=== PATIENT | female | born 2000 | race Caucasian/White ===

== ENCOUNTER → 2025-03-04 10:10 | Outpatient (CLI) | payer OTHER, SELFPAY ==
[2025-03-10 13:41] LABS: Chlamydia trachomatis Negative (Negative); Mycoplasma genitalium Negative (Negative); Neisseria gonorrhoeae Negative (Negative)
== END ==
PROVIDERS: PCP Family Medicine; Visit Provider Obstetrics & Gynecology
DX: Z11.3 Encounter for screening for infections with a predominantly sexual mode of transmission (principal)
CPT/HCPCS: 87491; 87563; 87591

== ENCOUNTER → 2025-03-04 10:23 | Outpatient (CLI) | payer OTHER, SELFPAY ==
[2025-03-04 11:47] LABS: Hemoglobin A1C% w Est Avg Glu < 4.0 % (4.0-6.0)
[2025-03-04 12:17] LABS: Free T4, Direct Thyroxine 0.99 ng/dL (0.78-2.19)
[2025-03-04 12:30] LABS: Thyroid Stimulating Hormone 2.95 uIU/mL (0.47-4.68)
== END ==
PROVIDERS: PCP Family Medicine; Referring Provider Obstetrics & Gynecology; Visit Provider Obstetrics & Gynecology
DX: Z31.69 Encounter for other general counseling and advice on procreation (principal); Z83.49 Family history of other endocrine, nutritional and metabolic diseases; Z11.3 Encounter for screening for infections with a predominantly sexual mode of transmission
CPT/HCPCS: 36415; 83036; 84439; 84443; 87491; 87563; 87591

== ENCOUNTER 2025-07-05 07:47 | Emergency (ER) | payer OTHER, SELFPAY ==
[2025-07-05 07:53] VITALS: BP 114/53; PULSE 87; RESP 18; TEMP 36.9; O2SAT 99; BMI 30.1
--- NOTE | 2025-07-05 08:04 | ED_ITS ---
HPI - Abdominal Pain General Chief Complaint: Abdominal Pain Stated Complaint: ; cramping LT abd; hx miscarrage Time Seen by Provider: 07/05/25 07:56 Source: patient Mode of arrival: Ambulatory History of Present Illness HPI narrative: Patient is a 25-year-old female presenting to day with some abdominal cramping more in the left side and some mild spotting. Last menstrual period was May 26. She is actively trying to get , no fertility medications. Last time she had a miscarriage as well it was thought that she may have had an ectopic but never went to surgery or took medication. She is worried about at this time. She has not yet seen an OB. Denies any significant nausea or vomiting. Says that pain is a little crampy but does not want anything for it. Related Data Home Medications ?Medication ?Instructions ?Recorded ?Confirmed No Known Home Medications 03/04/2512/02 Allergies Allergy/AdvReac Type Severity Reaction Status Date / Time No Known Drug Allergies Allergy Unverified 04/08/25 15:53 Patient History Medical History Plantar warts (~2019) Bulimia (~2015) History of eating disorder Herpes labialis Miscarriage (~2020) Encounter for preconception consultation Family history of MTHFR deficiency Surgical History Anesthesia Broken arm (~2003) Family History Mother Skin cancer Grandfather Cancer Grandfather Cancer Social History Smoking Status: Never smoker Smoking Status: Never smoker Exam Initial Vital Signs Initial Vital Signs: Vital Signs Temperature 98.5 F 07/05/25 07:53 Pulse Rate 87 07/05/25 07:53 Respiratory Rate 18 07/05/25 07:53 Blood Pressure 114/53 L 07/05/25 07:53 Pulse Oximetry 99 07/05/25 07:53 Oxygen Delivery Method Room Air 07/05/25 07:53 GENERAL: Alert pleasant well-appearing 25-year-old and in [no acute] distress. HEENT: Head atraumatic,EOMI, pupils reactive, face symmetric, [moist] mucous membranes CARDIOVASCULAR: Regular rate and rhythm without murmurs, rubs or gallops. RESPIRATORY: Breath sounds equal bilaterally, no wheezes rales or rhonchi. ABDOMEN: Soft, nontender. Normoactive bowel sounds all 4 quadrants. No guarding or rebound. Left lower quadrant tenderness no guarding or rebound EXTREMITIES: Normal range of motion, no clubbing or edema. Neurovascularly intact NEUROLOGICAL: Alert and oriented x4.Normal gait and speech. Cranial nerves II through XII grossly intact. SKIN: Warm, dry, no laceration, no petechiae, no rashes or lesions. Course Orders Ordered: ED Orders 07/05/25 08:01 ABO RH Type Stat Beta HCG, Quant [HCG Quantitative /Beta subunit] Stat CBC Auto Diff [Complete Blood Count AUTO DIFF] Stat CMP [Comprehensive Metabolic Panel] Stat 07/05/25 08:02 OB <= 14 weeks fetus Stat Vital Signs Vital signs: Vital Signs - 8 hr 07/05/25 07:53 07/05/25 10:01 Temperature 98.5 F 99.2 F Pulse Rate 87 82 Respiratory Rate 18 16 Blood Pressure 114/53 L 119/57 L Pulse Oximetry 99 Oxygen Delivery Method Room Air MDM - Abdominal Pain Lab Data 07/05/25 08:01 07/05/25 08:01 Labs: Lab Results 07/05/25 Range/Units 08:01 WBC 7.2 (4.5-11.0) X10^3/uL RBC 4.00 (4.0-5.2) X10^6/uL Hgb 12.6 (12.0-16.0) g/dL Hct 35.7 L (36-46) % MCV 89.4 (80-100) fL MCH 31.4 (26-34) PG MCHC 35.2 (30-36) % RDW 16.7 H (11.6-14.8) % Plt Count 274 (150-400) X10^3/uL Neut % (Auto) 70.7 (50-75) % Lymph % (Auto) 21.1 L (25-40) % Cataño % (Auto) 6.6 (3-14) % Eos % (Auto) 0.9 L (2-4) % Baso % (Auto) 0.7 (0-2) % Neut # (Auto) 5100 (5249-8185) /uL Lymph # (Auto) 1500 (5305-3473) /uL Cataño # (Auto) 500 (0-900) /uL Eos # (Auto) 100 (0-450) /uL Baso # (Auto) 100 (0-100) /uL Sodium 139 (137-145) mmol/L Potassium 3.8 (3.4-5.1) mmol/L Chloride 104 (98-107) mmol/L Carbon Dioxide 23 (22-32) mmol/L BUN 7 (7-17) mg/dL Creatinine 0.65 (0.52-1.04) mg/dL Estimated GFR > 60 (>60) mL/min BUN/Creatinine Ratio 10.8 (6-22) Glucose 112 H (70-99) mg/dL Calcium 9.4 (8.4-10.2) mg/dL Total Bilirubin 1.3 (0.2-1.3) mg/dL AST 33 (14-36) IU/L ALT 38 H (<35) IU/L Alkaline Phosphatase 62 (38-126) U/L Total Protein 8.5 H (6.3-8.2) g/dL Albumin 5.1 H (3.5-5.0) g/dL Globulin 3.4 (1.7-4.1) g/dL Albumin/Globulin Ratio 1.5 (1.0-2.8) HCG, Quant 62.85 mIU/mL Blood Type A Positive Point of care testing: Point of Care Testing Test Results Positive Urine Dip Bedside Urine Glucose Negative Bedside Urine Bilirubin - Negative Bedside Urine Ketone - Negative Urine Specific Lithia 1.000 Bedside Urine Occult Blood - Negative Bedside Urine pH 8.0 Bedside Urine Protein - Negative Bedside Urine Urobilinogen - Negative Bedside Urine Nitrite - Negative Bedside Urine Leukocytes - Negative Esterase Imaging Data US - STAFFING RN: Radiologist's Impression: PROCEDURE: US OB <= 14 WEEKS FETUS INDICATIONS: LLQ pain bleeding OUTSIDE/PRIOR DATING DATA: Last menstrual period (LMP): 05/26/2025 LMP-based estimated date of delivery (AYDEN): 03/02/2026. TECHNIQUE: Real-time scanning was performed of the fetus and maternal pelvic organs, with image documentation. Endovaginal scanning was also performed to better visualize the fetus and maternal ovaries. COMPARISON: None. FINDINGS: Embryo: Uterus measures 6.9 x 3.8 x 4.2 cm in size. Endometrium measures 1.7 cm in thickness. No intrauterine gestational sac. No endometrial mass or fluid is seen. Heart rate: Not detected. Maternal organs: Ovaries are within normal limits. No ectopic gestational sac or adnexal mass. Corpus luteal cyst is seen right ovary. IMPRESSION: 1. No intrauterine gestation is seen at this time. Correlation with serial beta HCG level is recommended for evaluation of viability. We strive to produce accurate, complete, and clear reports of imaging services. To assist us in improving patient care, this report was composed using standard report templates and voice recognition software. Therefore, it may contain abnormal punctuation, insertions and/or omissions. Occasional wrong-word or sound-alike substitutions may occur. Though we review the report and make efforts to correct it, we do recommend that the report be read carefully in proper context to recognize any text inaccuracies. Dictated by: Edilberto Marshall M.D. on 07/05/2025 at 9:30 Approved by: Edilberto Marshall M.D. on 07/05/2025 at 9:32 [facility] Narrative Medical decision making narrative: Patient 25-year-old female currently presenting today with abdominal cramping and mild spotting. She previously had a miscarriage. Blood work has been reviewed HCG is 62.85 A positive blood type Hemoglobin 12.6 hematocrit 35.7 Electrolytes within normal limits Urinalysis positive for negative for UTI Ultrasound does not show an IUP but no evidence of ectopic Patient has previously established with 2 providers here at this hospital 1 Ob. Recommend outpatient serial HCGs close monitoring and return as needed. At this time discussion with the patient and about testing results need for follow-up and when to return to ED. All questions have been answered. No need for RhoGAM at this time. Discharge Plan Departure Patient Disposition: Home Clinical Impression: , threatened Instructions: DI for Vaginal Bleeding During Activity Restrictions/Additional Instructions: *You have been diagnosed with vaginal bleeding with *What to do: At this time please have hCG repeated by Sunday. Call either OB or PCP to have blood work order placed *Continue to take medications as directed Tylenol 1000 mg every 6 hours for [id number] pain *Follow up with your primary care provider in 2-3 days or call [phone] *Return to ER if you should have increased bleeding increased cramping dizziness passing out [or] any new, worsening or concerning symptoms Prescriptions: No Action No Known Home Medications Referrals: Cora Hassan MD [Primary Care Provider, Family Practice] Dahiana Cannon MD [Physician, [facility]] Stand Alone Forms: Patient Portal/API
[2025-07-05 08:28] LABS: Add Manual Diff / Slide Review NO; Hematocrit 35.7 % (36-46); Hemoglobin 12.6 g/dL (12.0-16.0); Lymphocytes Absolute Auto 1500 /uL (1100-4500); Mean Corpuscular HGB Conc 35.2 % (30-36); Mean Corpuscular Hemoglobin 31.4 PG (26-34); Mean Corpuscular Volume 89.4 fL (80-100); Platelet Count 274 X10^3/uL (150-400)
[2025-07-05 08:44] LABS: Alanine Aminotransferase 38 IU/L (<35); Albumin 5.1 g/dL (3.5-5.0); Albumin Globulin Ratio 1.5 (1.0-2.8); Alkaline Phosphatase 62 U/L (38-126); Blood Urea Nitrogen 7 mg/dL (7-17); Calcium 9.4 mg/dL (8.4-10.2); Carbon Dioxide 23 mmol/L (22-32); Chloride 104 mmol/L (98-107); Estimated Glomerular Filt Rate > 60 mL/min (>60); Globulin 3.4 g/dL (1.7-4.1); Glucose 112 mg/dL (70-99); HEMOLYSIS < 15 (0-50); Potassium 3.8 mmol/L (3.4-5.1); Sodium 139 mmol/L (137-145); Total Protein 8.5 g/dL (6.3-8.2)
[2025-07-05 09:00] LABS: HCG Quantitative /Beta subunit 62.85 mIU/mL
[2025-07-05 10:01] VITALS: BP 119/57; PULSE 82; RESP 16; TEMP 37.3
== END 2025-07-05 10:02 | disposition home or self-care (01) ==
PROVIDERS: Emergency Provider Emergency Medicine; PCP Family Medicine
DX: O20.0 Threatened abortion (principal)
CPT/HCPCS: 36415; 76801; 76817; 80053; 81003; 81025; 84702; 85025; 86900; 86901; 99283; 99284

== ENCOUNTER → 2025-07-07 09:16 | Outpatient (CLI) | payer OTHER, SELFPAY ==
[2025-07-07 11:44] LABS: HCG Quantitative /Beta subunit 25.49 mIU/mL
== END ==
PROVIDERS: PCP Family Medicine; Referring Provider Obstetrics & Gynecology; Visit Provider Obstetrics & Gynecology
DX: O20.0 Threatened abortion (principal)
CPT/HCPCS: 36415; 84702

== ENCOUNTER → 2025-08-20 11:29 | Outpatient (CLI) | payer OTHER, SELFPAY | LOC: LAB 11:31 | PROVIDERS: PCP Family Medicine; Referring Provider Obstetrics & Gynecology; Visit Provider Obstetrics & Gynecology | DX: N96 Recurrent pregnancy loss (principal) | CPT/HCPCS: 36415; 85613; 85732; 86146; 86147 ==